=== PATIENT | male | born 1965 | race Caucasian/White ===

== ENCOUNTER 2017-06-03 18:46 | Emergency (ER) | payer BC ==
[2017-06-03 18:56] VITALS: TEMP 99.3
[2017-06-03 20:27] LABS: BASO # 0.1 K/uL (0.0-0.2); BASO % 1.5 % (0.0-2.0); EOS # 0.1 K/uL (0.0-0.7); EOS % 1.7 % (0.0-4.0); HEMOGLOBIN 15.9 g/dL (12.0-18.0); LYMPH # 1.3 K/uL (1.0-4.3); LYMPH % 24.4 % (20.0-40.0); MEAN CELL VOLUME 95.7 fl (80.0-94.0); MEAN CORPUSCULAR HEMOGLOBIN 32.5 pg (27.0-31.0); MEAN PLATELET VOLUME 10.5 fl (7.2-11.7); MONO # 0.5 K/uL (0.0-0.8); MONO % 9.1 % (0.0-10.0); NEUT # 3.3 K/uL (1.8-7.0); NEUT % 63.3 % (50.0-75.0); RBC 4.88 Mil/uL (4.40-5.90); RED CELL DISTRIBUTION WIDTH 13.5 % (11.5-14.5); WHITE BLOOD COUNT 5.2 K/uL (4.8-10.8)
[2017-06-03 20:33] LABS: ALB/GLOB RATIO 1.2 (1.0-2.1); ALBUMIN 4.6 g/dL (3.5-5.0); ALT/SGPT 66 U/L (21-72); AST/SGOT 62 U/L (17-59); BLOOD UREA NITROGEN 14 mg/dl (9-20); CALCIUM 9.7 mg/dL (8.4-10.2); GFR AFRICAN-AMERICAN > 60; GFR NON-AFRICAN AMERICAN > 60
--- NOTE | 2017-06-03 21:19 | ED PDOC ---
HPI: Chest Pain Time Seen by Provider: 06/03/17 19:27 Chief Complaint (Nursing): Chest Pain Chief Complaint (Provider): Chest Pain History Per: Patient History/Exam Limitations: no limitations Onset/Duration Of Symptoms: Intermittent Episodes, Other (x1 week) Current Symptoms Are (Timing): Intermittent Episodes Exacerbating Factors: Movement Additional Complaint(s): 52 year old male presents to ED with complaints of intermittent chest pain x1 week and has no past medical history. Localizes the pain to the substernal chest region and notes that it worsens with movement. (-) nausea, vomiting, diaphoresis, fever, cough, or SOB. Notes taking three baby aspirin today and that he currently has no pain. PCP: Woody Flores - Risk Factors TAD Risk Factors: Neg: Hypertension Past Medical History Reviewed: Historical Data, Nursing Documentation, Vital Signs Vital Signs: Last Vital Signs Temp 99.3 F 06/03/17 18:54 Pulse 81 06/03/17 21:26 Resp 18 06/03/17 18:54 BP 167/93 H 06/03/17 18:54 Pulse Ox 99 06/03/17 21:26 - Medical History PMH: No Chronic Diseases - Surgical History Surgical History: No Surg Hx - Family History Family History: States: Stroke - Social History Current smoker - smoking cessation education provided: Yes (Occasional) Alcohol: Occasional - Allergies Allergies/Adverse Reactions: Allergies Allergy/AdvReac Type Severity Reaction Status Date / Time No Known Allergies Allergy Verified 06/03/17 18:56 SIMON Risk Score for UA/NSTEMI - SIMON Risk Score Age > 64: NO 3 or more CAD Risk Factors: NO Known CAD (Stenosis greater than 50%): NO Aspirin use in past 7 days: YES SIMON Score: 1 Risk %: 5% Curb-65 Severity Score - CURB-65 Severity Score Respiratory Rate greater than/equal to 30: No Systolic BP <90 or Diastolic BP less than/equal 60mmHg: No Age >64: No Curb-65 Score: 0 Percentage 30-day mortality: 0.6% Wells Criteria for PE - Wells Criteria for Pulmonary Embolism Clinical Signs and Symptoms of DVT: No Heart Rate >100: No Immobilization at least 3 days;Surgery previous 4 weeks: No Previous, objectively diagnosed PE or DVT: No Hemoptysis: No Malignancy w/treatment within 6 months, or palliative: No Total Score: 0 Review of Systems ROS Statement: Except As Marked, All Systems Reviewed And Found Negative Constitutional: Negative for: Fever, Sweats Cardiovascular: Positive for: Chest Pain Respiratory: Negative for: Cough, Shortness of Breath Gastrointestinal: Negative for: Nausea, Vomiting Physical Exam - Reviewed Nursing Documentation Reviewed: Yes Vital Signs Reviewed: Yes - Physical Exam Appears: Positive for: Non-toxic, No Acute Distress Skin: Positive for: Normal Color, Warm, Dry Neck: Positive for: Normal, Painless ROM, Supple Cardiovascular/Chest: Positive for: Regular Rate, Rhythm. Negative for: Murmur Respiratory: Positive for: Normal Breath Sounds. Negative for: Respiratory Distress Gastrointestinal/Abdominal: Positive for: Soft. Negative for: Tenderness Extremity: Positive for: Normal ROM. Negative for: Deformity Neurologic/Psych: Positive for: Alert, Oriented. Negative for: Motor/Sensory Deficits - Laboratory Results Result Diagrams: 06/03/17 20:15 06/03/17 20:15 - ECG ECG Rhythm: Positive for: Sinus Rhythm Rate: 81 (taken at 18:51) O2 Sat by Pulse Oximetry: 99 (RA) Pulse Ox Interpretation: Normal Medical Decision Making Medical Decision Makin Initial impression: chest pain Initial plan: * EKG * Labs * Trop I * Erythrocyte sedimentation rate * PTT/PT * CXR * UA 2124 CXR: NAD as read by provider [id number] Labs reviewed: no clinically significant abnormalities. Provider offered patient observation for chest pain but patient declined. Patient is stable for discharge home. Advised to follow up with PMD for outpatient stress test. Scribe Attestation: Documented by Ewelina Gilliam acting as a scribe for Dom Green MD. Scribe Attestation: All medical record entries made by the Scribe were at my direction and personally dictated by me. I have reviewed the chart and agree that the record accurately reflects my personal performance of the history, physical exam, medical decision making, and the department course for this patient. I have also personally directed, reviewed, and agree with the discharge instructions and disposition. Disposition - Clinical Impression Clinical Impression: Atypical chest pain - Disposition Disposition: Routine/Home Disposition Time: 21:39 Condition: STABLE Instructions: Chest Pain Forms: [employer] (Malay)
[2017-06-03 21:29] LABS: INR 1.1 (0.9-1.2); PROTHROMBIN TIME 12.3 Seconds (9.8-13.1)
[2017-06-03 21:49] VITALS: BP 134/90; PULSE 72; RESP 16; O2SAT 98
--- NOTE | 2017-06-04 09:10 | CARD ---
APPROVED REPORT EKG Measurement Heart [id number] <Conclusion> Normal sinus rhythm Normal ECG
--- NOTE | 2017-06-04 09:36 | RAD ---
HISTORY: chest pain COMPARISON: No prior. FINDINGS: LUNGS: No active pulmonary disease. PLEURA: No significant pleural effusion identified, no pneumothorax apparent. CARDIOVASCULAR: Normal. OSSEOUS STRUCTURES: No significant abnormalities. VISUALIZED UPPER ABDOMEN: Normal. OTHER FINDINGS: None. IMPRESSION: No active disease.
== END 2017-06-03 21:51 | disposition home or self-care (01) ==
LOC: H.ER 18:46
DX: R07.89 Other chest pain (principal); F17.200 Nicotine dependence, unspecified, uncomplicated